=== PATIENT | female | born 1980 | race African-American/Black ===

== ENCOUNTER → 2017-07-03 | Outpatient (CLI) | payer SELFPAY | LOC: COL.RAD 09:37 | DX: R10.33 Periumbilical pain (principal) ==

== ENCOUNTER → 2017-08-10 | Outpatient (CLI) | payer BC | LOC: COL.RAD 12:25 | DX: K42.9 Umbilical hernia without obstruction or gangrene (principal); K43.9 Ventral hernia without obstruction or gangrene; Q89.9 Congenital malformation, unspecified ==

== ENCOUNTER 2017-08-25 10:10 | Day surgery (SDC) | payer BC ==
[~2017-08-25] VITALS: Ht 157.5 cm; Wt 85.1 kg
[2017-08-25 10:33] VITALS: BP 142/87; PULSE 78; TEMP 98.5
[2017-08-25] MEDS ORDERED: VITAMIN D 50,1.25 MG PO (10:36)
[2017-08-25 12:30] VITALS: BP 126/73; PULSE 81; TEMP 98.4
[2017-08-25] MEDS ORDERED: PERCOCET 325 MG1 TA2 PO (12:32)
[2017-08-25] MEDS ORDERED: MOTRIN 600600 MG/TAB PO (12:32)
[2017-08-25] MEDS ORDERED: COLACE 100100 MG/CAP PO (12:32)
[2017-08-25 12:45] VITALS: BP 132/83; PULSE 69
[2017-08-25 13:00] VITALS: BP 142/84; PULSE 66
[2017-08-25 13:15] VITALS: BP 141/82; PULSE 55
[2017-08-25 13:45] VITALS: BP 116/83; PULSE 58
== END 2017-08-25 14:32 | disposition home or self-care (01) ==
LOC: SDCO 10:10
DX: K43.9 Ventral hernia without obstruction or gangrene (principal); I10 Essential (primary) hypertension; D64.9 Anemia, unspecified; Z83.3 Family history of diabetes mellitus; Z82.49 Family history of ischemic heart disease and other diseases of the circulatory system
CPT/HCPCS: J0690; J2704; J7120

== ENCOUNTER 2020-01-19 15:11 | Outpatient (CLI) | payer MEDICAID ==
[~2020-01-19] VITALS: Ht 157.5 cm; Wt 99.5 kg
[2020-01-19] VITALS (12 sets, daily range): BP systolic 133–176; BP diastolic 78–106; PULSE 89–105; TEMP 98.2
[~2020-01-19 15:11] MED LIST: COLACE 100100 MG/CAP PO; MOTRIN 600600 MG/TAB PO; PERCOCET 325 MG1 TA2 PO; VITAMIN D 50,1.25 MG PO
--- NOTE | 2020-01-19 15:25 | NUR ---
Patient ambulatory to LR6, changed into gown, FHR/TOCO monitors placed. Patient sent from office for increased blood pressures. Orders received from Dr. Estrada. Plan of care discussed. Patient denies regular contractions/vaginal bleeding/leaking of fluid/decreased movement. Patient refusing IV, lab called to draw labs. 1604: Dr. Estrada updated on patient. No new orders.
[2020-01-19] MEDS ORDERED: PRENATAL TABLET PO (15:32)
[2020-01-19] MEDS ORDERED: PROCARDIA XL 6060 MG PO (15:33)
[2020-01-19 16:02] LABS: COLLECTION METHOD CLEAN CATCH
[2020-01-19 16:06] LABS: BASO % 0.2 % (0.0-2.0); EOS # 0.2 (0.0-0.7); EOS % 1.7 % (0-4.0); GRAN # 6.6 (1.4-6.5); GRAN % 73.2 % (42.2-75.2); HEMATOCRIT 34.7 % (37.0-47.0); HEMOGLOBIN 11.8 g/dl (12.5-16.0); LYMPH # 1.5 (1.2-3.4); LYMPH % 16.5 % (20.0-51.0); MEAN CELL VOLUME 85 fl (80.0-100.0); MEAN CORPUSCULAR HEMOGLOBIN 29 pg (27.0-31.0); MEAN CORPUSCULAR HGB CONC 34 g/dl (33.0-37.0); MEAN PLATELET VOLUME 10.6 fl (7.4-10.4); MONO # 0.7 (0.1-0.6); MONO % 7.4 % (1.7-9.3); PLATELET COUNT 281 K/mm3 (130-400); RED BLOOD COUNT 4.09 M/mm3 (4.10-5.30); REDCELL DISTRIBUTION WIDTH-CV 14.1 % (11.5-14.5)
[2020-01-19 16:12] LABS: MUCOUS Present /lpf; PH 5 (5-8); URINE APPEARANCE Hazy; URINE BACTERIA Rare /hpf; URINE BILIRUBIN Negative (NEGATIVE); URINE BLOOD Negative (NEGATIVE); URINE COLOR Amber; URINE GLUCOSE Negative (NEGATIVE); URINE KETONE Negative (NEGATIVE); URINE LEUKOCYTE ESTERASE Negative (NEGATIVE); URINE NITRATE Negative (NEGATIVE); URINE PROTEIN(semi-quant) 2+ (NEGATIVE); URINE RBC 0-2 /hpf; URINE UROBILINOGEN Negative (NEGATIVE)
[2020-01-19 16:30] LABS: ALBUMIN 3.4 gm/dL (3.5-5.0); BILIRUBIN,TOTAL 0.3 mg/dL (0.0-1.0); CALCIUM 9.3 mg/dL (8.4-10.2); CREATININE, serum 0.78 (0.52-1.25); POTASSIUM 4.6 mmol/L (3.4-5.0); TOTAL PROTEIN 6.7 gm/dL (6.4-8.2)
--- NOTE | 2020-01-19 16:30 | NUR ---
Dr. Estrada at nurses station and updated. Reviewing FHR strip and blood pressures. No new orders at this time.
--- NOTE | 2020-01-19 17:45 | NUR ---
Dr. Estrada at bedside discussing plan of care and highly recommending today. Patient states that she is very stressed and not emotional ready. 1751: SONO done and breech presentation confirmed. Patient and spouse discussed decision at this time.
--- NOTE | 2020-01-19 18:15 | NUR ---
Patient and call out stating she is ready to discuss plan of care with . Patient states she is not ready to have the section and wants to go home. at bedside extensively counseling patient on recommendation to proceed with section due to preeclampisa. Risks to patient and baby discussed, including but not limited to to mother/baby, seizures, stroke, placental abruption. See physician note. Patient continues to refuse section stating she is not ready to have her baby. EFMs removed at 1825. Patient needs to sign papers stating she is leaving against medical advice. AMA paper reviewed by with patient and spouse.
--- NOTE | 2020-01-19 18:55 | NUR ---
Ambulatory off of unit with at side against medical advice.
== END 2020-01-19 18:55 | disposition left against medical advice (07) ==
LOC: LDRO 15:11
PROVIDERS: Obstetrics & Gynecology
DX: O26.893 Other specified pregnancy related conditions, third trimester (principal); Z3A.38 38 weeks gestation of pregnancy; R03.0 Elevated blood-pressure reading, without diagnosis of hypertension

== ENCOUNTER 2020-01-22 12:47 | Inpatient (IN) | payer MEDICAID ==
[2020-01-22] VITALS (31 sets, daily range): BP systolic 85–172; BP diastolic 37–108; PULSE 82–106; TEMP 97.6–99
[~2020-01-22] VITALS: Ht 157.5 cm; Wt 99.1 kg
--- NOTE | 2020-01-22 12:45 | NUR ---
Pt arrives ambulatory with spouse for NST. Denies preeclampsia s/s. Changed into a clean gown. EFM and toco applied. Labs drawn. CC UA obtained.
[~2020-01-22 12:47] MED LIST changes: +PRENATAL TABLET PO; +PROCARDIA XL 6060 MG PO
[2020-01-22 14:02] LABS: COLLECTION METHOD CLEAN CATCH
[2020-01-22 14:08] LABS: BASO % 0.2 % (0.0-2.0); EOS # 0.2 (0.0-0.7); EOS % 2.3 % (0-4.0); GRAN # 5.7 (1.4-6.5); GRAN % 69.5 % (42.2-75.2); HEMOGLOBIN 11.1 g/dl (12.5-16.0); LYMPH # 1.5 (1.2-3.4); LYMPH % 18.4 % (20.0-51.0); MEAN CELL VOLUME 86 fl (80.0-100.0); MEAN CORPUSCULAR HEMOGLOBIN 29 pg (27.0-31.0); MEAN CORPUSCULAR HGB CONC 34 g/dl (33.0-37.0); MEAN PLATELET VOLUME 11.1 fl (7.4-10.4); MONO # 0.7 (0.1-0.6); PLATELET COUNT 258 K/mm3 (130-400); RED BLOOD COUNT 3.84 M/mm3 (4.10-5.30); REDCELL DISTRIBUTION WIDTH-CV 14.2 % (11.5-14.5)
[2020-01-22 14:10] LABS: HEMATOCRIT 32.9 % (37.0-47.0)
[2020-01-22 14:12] LABS: PH 5 (5-8); SQUAMOUS EPITHELIAL 0-2 /hpf; URINE APPEARANCE Hazy; URINE BACTERIA Moderate /hpf; URINE BILIRUBIN Negative (NEGATIVE); URINE BLOOD Negative (NEGATIVE); URINE COLOR Yellow; URINE GLUCOSE Negative (NEGATIVE); URINE KETONE Negative (NEGATIVE); URINE LEUKOCYTE ESTERASE Negative (NEGATIVE); URINE NITRATE Negative (NEGATIVE); URINE PROTEIN(semi-quant) 1+ (NEGATIVE); URINE RBC 0-2 /hpf; URINE UROBILINOGEN Negative (NEGATIVE)
[2020-01-22 14:17] LABS: ALBUMIN 3.2 gm/dL (3.5-5.0); BILIRUBIN,TOTAL 0.2 mg/dL (0.0-1.0); CREATININE, serum 0.92 (0.52-1.25); POTASSIUM 4.4 mmol/L (3.4-5.0); TOTAL PROTEIN 6.3 gm/dL (6.4-8.2)
--- NOTE | 2020-01-22 21:55 | NUR ---
Patient moved to room [address] Luna verbal order.
[2020-01-23 00:02] VITALS: BP 145/84; PULSE 103; TEMP 98.3
[2020-01-23 04:30] VITALS: BP 145/76; PULSE 81; TEMP 97.8
[2020-01-23 07:20] VITALS: BP 142/72; PULSE 82; TEMP 97.4
[2020-01-23 07:23] LABS: HEMOGLOBIN 11.9 g/dl (12.5-16.0); MEAN CELL VOLUME 85 fl (80.0-100.0); MEAN CORPUSCULAR HEMOGLOBIN 30 pg (27.0-31.0); MEAN CORPUSCULAR HGB CONC 35 g/dl (33.0-37.0); PLATELET COUNT 323 K/mm3 (130-400); RED BLOOD COUNT 4.03 M/mm3 (4.10-5.30); REDCELL DISTRIBUTION WIDTH-CV 14.2 % (11.5-14.5)
[2020-01-23 07:24] LABS: HEMATOCRIT 34.2 % (37.0-47.0)
[2020-01-23 07:35] LABS: ALBUMIN 3.1 gm/dL (3.5-5.0); BILIRUBIN,TOTAL 0.2 mg/dL (0.0-1.0); CALCIUM 9.2 mg/dL (8.4-10.2); CREATININE, serum 0.95 (0.52-1.25); POTASSIUM 5.4 mmol/L (3.4-5.0); TOTAL PROTEIN 6.3 gm/dL (6.4-8.2)
[2020-01-23 16:01] VITALS: BP 136/72; PULSE 78; TEMP 98.1
[2020-01-23 20:35] VITALS: BP 141/81; PULSE 99; TEMP 97.8
[2020-01-24 00:15] VITALS: BP 143/87; PULSE 99
[2020-01-24 06:55] VITALS: BP 126/84; BP 146/79; PULSE 69; PULSE 87; TEMP 97.4; TEMP 98.3
[2020-01-24 08:18] LABS: ALBUMIN 3.5 gm/dL (3.5-5.0); BILIRUBIN,TOTAL 0.3 mg/dL (0.0-1.0); CREATININE, serum 0.92 (0.52-1.25); POTASSIUM 4.7 mmol/L (3.4-5.0); TOTAL PROTEIN 6.7 gm/dL (6.4-8.2)
[2020-01-24 08:25] LABS: HEMOGLOBIN 11.2 g/dl (12.5-16.0); MEAN CELL VOLUME 87 fl (80.0-100.0); MEAN CORPUSCULAR HEMOGLOBIN 29 pg (27.0-31.0); MEAN CORPUSCULAR HGB CONC 33 g/dl (33.0-37.0); MEAN PLATELET VOLUME 11.4 fl (7.4-10.4); PLATELET COUNT 281 K/mm3 (130-400); REDCELL DISTRIBUTION WIDTH-CV 14.6 % (11.5-14.5)
[2020-01-24 08:30] LABS: HEMATOCRIT 33.8 % (37.0-47.0)
--- NOTE | 2020-01-24 09:45 | NUR ---
See physician notification. Steristrips applied using sterile technique to incision per physician order. Will continue to monitor.
[2020-01-24 11:08] VITALS: BP 133/74; PULSE 87; TEMP 98.7
--- NOTE | 2020-01-24 11:51 | NUR ---
Steristrips saturated from middle to left side of incision. Dr. Estrada notified. Orders to remove steristrips and replace with Telfa/ABD pressure dressing and leave overnight.
--- NOTE | 2020-01-24 12:05 | NUR ---
Saturated steristrips removed per order. Pressure dressing using Telfa and ABD applied using sterile technique by gely MORA and Jose Chin RN.
[2020-01-24 16:09] VITALS: BP 135/73; PULSE 96; TEMP 98.8
[2020-01-24 17:46] VITALS: BP 142/89; PULSE 90; TEMP 98.5
[2020-01-24 19:45] VITALS: BP 160/79; PULSE 97; TEMP 98.4
[2020-01-25 02:10] VITALS: BP 146/80; PULSE 98; TEMP 98.1
[2020-01-25 07:33] LABS: ALBUMIN 3.4 gm/dL (3.5-5.0); BILIRUBIN,TOTAL 0.2 mg/dL (0.0-1.0); CALCIUM 8.9 mg/dL (8.4-10.2); CREATININE, serum 0.92 (0.52-1.25); TOTAL PROTEIN 6.6 gm/dL (6.4-8.2)
[2020-01-25 08:30] VITALS: BP 155/88; PULSE 101; TEMP 97.7
--- NOTE | 2020-01-25 09:30 | NUR ---
Dr Estrada here and evaluates incision. pt to shower and then will redress incision for patient to keep on until tomorrow and can remove at home. 1000:Pt showered and this nurse at bedside. Dressing oozing small amount. New dressing on and taped. Binder in place.
[2020-01-25] MEDS ORDERED: PROCARDIA XL 6060 MG PO (09:47)
[2020-01-25] MEDS ORDERED: PERCOCET 325 MG1 TA2 PO (09:48)
[2020-01-25] MEDS ORDERED: IBU800 M1 PO (09:48)
--- NOTE | 2020-01-25 13:49 | NUR ---
Discharge instructions given, pt verbalizes understanding. No further questions noted. Bands matched and hugs tag removed.
== END 2020-01-25 14:35 | disposition home or self-care (01) | DRG 788 ==
LOC: LDR 12:47 → LDRO 12:47 → OB 15:32 → LDR 15:32 → OB 22:00
PROVIDERS: Student in an Organized Health Care Education/Training Program; ADMIT Obstetrics & Gynecology
PROC: 10D00Z1 Extraction of Products of Conception, Low, Open Approach (ICD-10-PCS; principal; 2020-01-22)
DX: O11.4 Pre-existing hypertension with pre-eclampsia, complicating childbirth (principal); Z37.0 Single live birth; O34.211 Maternal care for low transverse scar from previous cesarean delivery; O34.13 Maternal care for benign tumor of corpus uteri, third trimester; D25.9 Leiomyoma of uterus, unspecified; O99.214 Obesity complicating childbirth; E66.9 Obesity, unspecified; O99.02 Anemia complicating childbirth; O77.0 Labor and delivery complicated by meconium in amniotic fluid; D64.9 Anemia, unspecified; O99.824 Streptococcus B carrier state complicating childbirth; Z3A.38 38 weeks gestation of pregnancy
CPT/HCPCS: J0360; J0690; J1100; J1885; J2370; J2405; J2590; J7120

== ENCOUNTER 2020-02-04 14:49 | Emergency (ER) | payer MEDICAID ==
[~2020-02-04] VITALS: Ht 157.5 cm; Wt 90.9 kg
[~2020-02-04 14:49] MED LIST changes: +IBU800 M1 PO
[2020-02-04 14:54] VITALS: TEMP 99.8
[2020-02-04 15:11] LABS: BASO % 0.4 % (0.0-2.0); EOS # 0.3 (0.0-0.7); EOS % 3.9 % (0-4.0); GRAN # 4.9 (1.4-6.5); GRAN % 62.1 % (42.2-75.2); HEMATOCRIT 37.4 % (37.0-47.0); HEMOGLOBIN 12.5 g/dl (12.5-16.0); LYMPH # 2.1 (1.2-3.4); LYMPH % 26.3 % (20.0-51.0); MEAN CELL VOLUME 85 fl (80.0-100.0); MEAN CORPUSCULAR HEMOGLOBIN 29 pg (27.0-31.0); MEAN CORPUSCULAR HGB CONC 33 g/dl (33.0-37.0); MEAN PLATELET VOLUME 9.9 fl (7.4-10.4); MONO # 0.5 (0.1-0.6); MONO % 6.8 % (1.7-9.3); PLATELET COUNT 406 K/mm3 (130-400); RED BLOOD COUNT 4.39 M/mm3 (4.10-5.30); REDCELL DISTRIBUTION WIDTH-CV 13.8 % (11.5-14.5)
[2020-02-04 15:20] LABS: INR 0.9 (0.8-3.0)
[2020-02-04 15:22] LABS: PARTIAL THROMBOPLASTIN TIME 35.6 SECONDS (26.0-37.0)
[2020-02-04 15:34] LABS: COLLECTION METHOD CLEAN CATCH
[2020-02-04 15:37] LABS: ALBUMIN 4.1 gm/dL (3.5-5.0); BILIRUBIN,TOTAL 0.3 mg/dL (0.0-1.0); C-REACTIVE PROTEIN 0.9 mg/dL (0.0-0.9); CALCIUM 9.1 mg/dL (8.4-10.2); CREATININE, serum 0.94 (0.52-1.25); POTASSIUM 3.5 mmol/L (3.4-5.0); TOTAL PROTEIN 7.6 gm/dL (6.4-8.2); URIC ACID 6.8 mg/dL (2.5-6.2)
[2020-02-04 15:50] LABS: MUCOUS Present /lpf; PH 5 (5-8); URINE APPEARANCE Hazy; URINE BACTERIA None Seen /hpf; URINE BILIRUBIN Negative (NEGATIVE); URINE BLOOD 1+ (NEGATIVE); URINE COLOR Yellow; URINE GLUCOSE Negative (NEGATIVE); URINE KETONE Negative (NEGATIVE); URINE LEUKOCYTE ESTERASE Negative (NEGATIVE); URINE NITRATE Negative (NEGATIVE); URINE PROTEIN(semi-quant) 2+ (NEGATIVE); URINE RBC 0-2 /hpf; URINE UROBILINOGEN Negative (NEGATIVE)
[2020-02-04 17:21] VITALS: BP 138/95; PULSE 94
== END 2020-02-04 17:22 | disposition home or self-care (01) ==
LOC: COL.ER 14:49
PROVIDERS: Emergency Medicine
DX: O16.5 Unspecified maternal hypertension, complicating the puerperium (principal); Z87.59 Personal history of other complications of pregnancy, childbirth and the puerperium
CPT/HCPCS: J3010; J7030

== ENCOUNTER 2020-07-09 22:51 | Emergency (ER) | payer MEDICAID ==
[~2020-07-09] VITALS: Ht 157.5 cm; Wt 86.4 kg
[2020-07-09 22:59] VITALS: TEMP 99.1
[2020-07-09 23:48] LABS: BASO % 0.4 % (0.0-2.0); EOS # 0.3 (0.0-0.7); EOS % 4.1 % (0-4.0); GRAN # 3.7 (1.4-6.5); GRAN % 49.1 % (42.2-75.2); HEMATOCRIT 39.3 % (37.0-47.0); HEMOGLOBIN 12.9 g/dl (12.5-16.0); LYMPH # 3.1 (1.2-3.4); MEAN CELL VOLUME 84 fl (80.0-100.0); MEAN CORPUSCULAR HEMOGLOBIN 28 pg (27.0-31.0); MEAN CORPUSCULAR HGB CONC 33 g/dl (33.0-37.0); MEAN PLATELET VOLUME 10.2 fl (7.4-10.4); MONO # 0.4 (0.1-0.6); PLATELET COUNT 359 K/mm3 (130-400); RED BLOOD COUNT 4.67 M/mm3 (4.10-5.30); REDCELL DISTRIBUTION WIDTH-CV 13.8 % (11.5-14.5)
[2020-07-09 23:56] LABS: ALANINE AMINOTRANSFERASE 19 U/L (4-34); ALBUMIN 4.3 gm/dL (3.5-5.0); ALKALINE PHOSPHATASE 78 U/L (50-136); ANION GAP 9 mmol/L (7-16); AST,SGOT 27 U/L (15-37); BILIRUBIN,TOTAL 0.3 mg/dL (0.0-1.0); BLOOD UREA NITROGEN 19 mg/dL (7-17); CALCIUM 9.2 mg/dL (8.4-10.2); CARBON DIOXIDE 25 mmol/L (22-30); CHLORIDE 104 mmol/L (98-107); CREATININE, serum 0.81 (0.52-1.25); GLUCOSE 118 mg/dL (74-106); POTASSIUM 3.4 mmol/L (3.4-5.0); SODIUM 138 mmol/L (137-145); TOTAL PROTEIN 7.5 gm/dL (6.4-8.2)
[2020-07-10 00:12] LABS: TROPONIN-I < 0.012 ng/mL (0.000-0.035)
[2020-07-10 04:25] VITALS: BP 166/108; PULSE 80
== END 2020-07-10 04:25 | disposition home or self-care (01) ==
LOC: COL.ER 22:51
PROVIDERS: Emergency Medicine
DX: R07.9 Chest pain, unspecified (principal); I10 Essential (primary) hypertension; Z86.79 Personal history of other diseases of the circulatory system

== ENCOUNTER 2021-04-10 14:29 | Emergency (ER) | payer MEDICAID ==
[~2021-04-10] VITALS: Ht 157.5 cm; Wt 90.9 kg
[2021-04-10 14:37] VITALS: BP 169/109; TEMP 98.5
[2021-04-10 15:15] LABS: COLLECTION METHOD CLEAN CATCH
[2021-04-10 15:33] LABS: PH 6 (5-8); SQUAMOUS EPITHELIAL 0-2 /hpf; URINE APPEARANCE Clear; URINE BACTERIA Rare /hpf; URINE BILIRUBIN Negative (NEGATIVE); URINE BLOOD 3+ (NEGATIVE); URINE COLOR Yellow; URINE GLUCOSE Negative (NEGATIVE); URINE KETONE Negative (NEGATIVE); URINE LEUKOCYTE ESTERASE Negative (NEGATIVE); URINE NITRATE Negative (NEGATIVE); URINE PROTEIN(semi-quant) 1+ (NEGATIVE); URINE RBC 20-50 /hpf; URINE UROBILINOGEN Negative (NEGATIVE)
[2021-04-10 15:47] LABS: BASO # 0.1 (0.0-0.2); BASO % 0.7 % (0.0-2.0); EOS # 0.2 (0.0-0.7); EOS % 2.6 % (0-4.0); GRAN % 59.3 % (42.2-75.2); HEMATOCRIT 38.2 % (37.0-47.0); HEMOGLOBIN 12.5 g/dl (12.5-16.0); LYMPH # 2.1 (1.2-3.4); LYMPH % 30.1 % (20.0-51.0); MEAN CELL VOLUME 81 fl (80.0-100.0); MEAN CORPUSCULAR HEMOGLOBIN 27 pg (27.0-31.0); MEAN CORPUSCULAR HGB CONC 33 g/dl (33.0-37.0); MEAN PLATELET VOLUME 9.8 fl (7.4-10.4); MONO # 0.5 (0.1-0.6); PLATELET COUNT 409 K/mm3 (130-400); RED BLOOD COUNT 4.72 M/mm3 (4.10-5.30); REDCELL DISTRIBUTION WIDTH-CV 15.9 % (11.5-14.5)
[2021-04-10 17:24] VITALS: PULSE 75
== END 2021-04-10 17:24 | disposition home or self-care (01) ==
LOC: COL.ER 14:29
PROVIDERS: Physician Assistant
DX: O20.0 Threatened abortion (principal); Z3A.08 8 weeks gestation of pregnancy